=== PATIENT | male | born 2000 | race Caucasian/White ===

== ENCOUNTER 2022-12-31 17:53 | Inpatient (IN) ==
--- NOTE | 2022-12-31 18:01 | ED Triage Note ---
Date of Service December 31, 2022 History of Present Illness This patient was briefly evaluated while in triage. An abbreviated physical exam was performed. This patient is a 22-year-old Male with past medical history of prior pneumothorax who presents to the ED for evaluation of pneumothorax. Patient sta himanshu that he is having left-sided chest pain. He was seen at urgent care today and had a chest x-ray. They just called him and told him that he had a pneumothorax and should come to the ER. He was not treated with a chest tube in the past. Physical Exam VITALS: Vitals are noted on the nurse's note and reviewed by myself. GENERAL: This is a 22-year-old male, in no acute distress, nondiaphoretic, well- developed well-nourished. HEART: Regular rate and rhythm without murmurs gallops or rubs. LUNGS: Mildly decreased breath sounds on the left. No retractions or accessory muscle use. NEURO: Patient was alert and oriented to person place and time. Initial orders for labs and / or imaging were placed and patient was placed in the waiting area until a bed is available. Please see further documentation for the full ED course.
--- NOTE | 2022-12-31 18:52 | XRay Report ---
XR chest 1V portable CLINICAL HISTORY: Pneumothorax per urgent care, left chest pain TECHNIQUE: Single frontal radiograph of the chest was obtained. Comparison: Comparison is made to chest radiograph 08/19/2022 FINDINGS: No lines and tubes are seen. Rightward cardiomediastinal shift is noted, the contour is otherwise unr emarkable. The lungs are clear. There is a moderate left pneumothorax. IMPRESSION: Moderate left pneumothorax with associated rightward midline shift. This is significantly increased f rom prior exam. ACT 112: Negative or not required by law. Electronically signed by: Miguel Bassett M.D. 12/31/2022 6:51 PM
[2022-12-31] MEDS ORDERED: LIDO/EPINEPHRINE/SOD BICARB 50 ML VIAL INFIL ONE (19:12)
[2022-12-31] MEDS ORDERED: MoRPHine SULFATE 4 MG/ML 1 ML CARP\\VIAL IV STA (19:24)
[2022-12-31] MEDS ORDERED: MoRPHine SULFATE 2 MG/ML CARP ONE (19:25)
[2022-12-31] MEDS ORDERED: ONDANSETRON INJ 2 MG/ML 2 ML VIAL IV STA (19:25)
[2022-12-31] MEDS ORDERED: ONDANSETRON INJ 2 MG/ML 2 ML VIAL ONE (19:26)
[2022-12-31] MEDS ORDERED: LORazepam 2 MG/1 ML VIAL IV STA (19:27)
--- NOTE | 2022-12-31 20:01 | XRay Report ---
XR chest 1V portable CLINICAL HISTORY: throavent placement TECHNIQUE: Single frontal radiograph of the chest was obtained. Comparison: Comparison is made to chest radiograph 12/31/2022 FINDINGS: Interval placement of a left pleural catheter. The cardiomediastinal silhouette is normal. The lungs are clear. The left pneumothorax has somewhat decreased in size. IMPRESSION: [id number] left pneumothorax, somewhat decreased in size from prior exam. ACT 112: Negative or not required by law. Electronically signed by: Miguel Bassett M.D. 12/31/2022 8:00 PM
--- NOTE | 2022-12-31 20:07 | Emergency Department Note ---
History of Present Illness General Chief complaint: Abnormal Labs/Diagnostic Testing Stated complaint: SOMETHING WRONG WITH THORAX Time Seen by Provider: 12/31/22 18:04 History of Present Illness Provider complaint: Left-sided chest pain pneumothorax Onset (ago): day(s) 2 Location: chest and left Associated symptoms: + chest pain 22-year-old male presents emergency department for left-sided chest pain. Patient reports his left-sided chest pain began 2 days ago. He states it hurts more when he takes a deep breath. Patient states it feels similar to when he had pneumothoraces in the past. Patient states he has had pneumothorax twice in his life before all on the left side he states they usually resolve on their own and he has never received a chest tube. Patient denies any trauma. He denies any falls. Patient states he had an outpatient x-ray done today which showed a pneumothorax and was referred to the emergency department. Home Medications Medication Instructions Recorded Confirmed Type amoxicillin 875 mg tablet 875 mg PO BID 12/31/22 12/31/22 History Allergies Allergy/AdvReac Type Severity Reaction Status Date / Time No Known Allergies Allergy Verified 08/20/22 07:33 Past Med/Surg History Medical History No pertinent family history Pneumothorax Surgical History No pertinent past surgical history Social History Smoking Status: Never smoker Feels Safe at Home: Yes Physical Exam Vital Signs Vital Signs - 24 hr 12/31/22 18:01 12/31/22 18:10 12/31/22 18:11 Temperature 36.5 C Temperature Source Temporal Artery Scan Pulse Rate 105 H 93 H Pulse Rate [Left Apical] Pulse Rhythm [Left Apical] Pulse Strength [Left Apical] Respiratory Rate 18 Respiratory Effort / Characteristics Non-Labored Respiratory Depth Normal Blood Pressure 136/92 Blood Pressure [Right Arm] Blood Pressure Mean 106 Blood Pressure Mean [Right Arm] Pulse Oximetry 97 100 Oxygen Delivery Method Room Air Non-rebreather Oxygen Flow Rate 15 Sepsis Recent Fever Within 48 Hours No Sepsis New/Unexplained Change in Mental Status No Sepsis Action Taken by Nursing No Action Required 12/31/22 19:30 12/31/22 19:50 12/31/22 20:53 Temperature Temperature Source Pulse Rate Pulse Rate [Left Apical] 89 77 72 Pulse Rhythm [Left Apical] Regular Pulse Strength [Left Apical] Normal Respiratory Rate 20 20 20 Respiratory Effort / Characteristics Non-Labored Spontaneous Non-Labored Spontaneous Non-Labored Spontaneous Respiratory Depth Normal Normal Normal Blood Pressure Blood Pressure [Right Arm] 130/94 129/91 116/75 Blood Pressure Mean Blood Pressure Mean [Right Arm] 106 103 88 Pulse Oximetry 100 100 100 Oxygen Delivery Method Non-rebreather Non-rebreather Non-rebreather Oxygen Flow Rate 10 10 15 Sepsis Recent Fever Within 48 Hours Sepsis New/Unexplained Change in Mental Status Sepsis Action Taken by Nursing 12/31/22 22:07 12/31/22 22:22 Temperature Temperature Source Pulse Rate 64 Pulse Rate [Left Apical] 62 Pulse Rhythm [Left Apical] Regular Pulse Strength [Left Apical] Normal Respiratory Rate 20 Respiratory Effort / Characteristics Non-Labored Spontaneous Respiratory Depth Normal Blood Pressure Blood Pressure [Right Arm] 121/75 Blood Pressure Mean Blood Pressure Mean [Right Arm] 90 Pulse Oximetry 100 Oxygen Delivery Method Non-rebreather Oxygen Flow Rate 15 Sepsis Recent Fever Within 48 Hours Sepsis New/Unexplained Change in Mental Status Sepsis Action Taken by Nursing Physical Exam GENERAL: He is oriented to person, place, and time. He appears well-developed and well-nourished. He does not appear distressed. HENT: Exam performed. - Head: Normocephalic and atraumatic. EYES: Conjunctivae and EOM are normal. Pupils are equal, round, and reactive to light. Right eye exhibits no discharge. Left eye exhibits no discharge. No scleral icterus. NECK: Normal range of motion. Neck supple. No JVD present. CV: Normal rate, regular rhythm, normal heart sounds and intact distal pulses. There is no peripheral edema. Palpable radial pulses bue. PULM/CHEST: Diminished breath sounds on the left. - Chest Wall: He exhibits no tenderness. No crepitus bilaterally. ABD: The abdomen is soft. MUSC/SKEL: Normal range of motion. There is no peripheral edema, tenderness or deformity. LYMPH: No cervical adenopathy. NEURO: Motor and sensation grossly intact. SKIN: Skin is warm and dry. He is not diaphoretic. PSYCH: He has a normal mood and affect. Behavior is normal. Judgment and thought content normal. Procedures Free Text Procedures Tube Thoracostomy Indication: L Pneumothorax Written consent was obtained after the risks and benefits were explained, including but not limited to bleeding, scarring, infection, pain. At this time, the risks of the procedure are less than the risks of NOT performing the procedure. A time out was taken and the correct patient and site identified. The patient was prepped and draped in the standard surgical fashion. 1% lidocaine without epinephrine was infused over the L fifth intercostal space into the subcutaneous tissue. An incision was made in the mid axillary line over the fifth intercostal rib. A thoravent was inserted in the pleural space. Area was manually aspirated with a 50 cc syringe. The patient tolerated the procedure well without complications. A postoperative x-ray was then performed which showed the thoracostomy tube in the correct position. Course Course 1803: The patient was evaluated in room C11. A complete history and physical exam was performed Cardiac monitoring: An order was placed for continuous cardiac monitoring. The monitor shows a rate of 60 with sinus rhythm interpreted by me 1844: Chest x-ray shows left-sided pneumothorax no mediastinal shift pneumothorax is approximately 2.9 cm in size. 1914: Formal radiology read states that there is some right word midline shift. Clinically there is no tension. Patient's blood pressure is stable no JVD trachea midline. 1954: Thoravent was placed. See procedure note. Patient tolerated procedure well. Pneumothorax has decreased in size by approximately half approximately 1.4 cm in size now. We will plan to admit to the hospitalist service. 2056: Spoke with the hospitalist team. Dr. Hawk as we speak with pulmonology. Spoke with pulmonology Dr. Bashir who recommended transfer because he states that this is the patient's third pneumothorax on the left side and he states he needs a VATS/pleurodesis procedure and we do not have thoracic surgery at this facility. I did inform Dr. Bashir that there is been significant delay in transfer due to tertiary care facilities locally not having any available beds and he states if that is the case to admit to medicine and to get a CT of the chest on the patient. 2115: There are no available beds at [facility] or [facility] for the patient at this time. Both facilities state they cannot accept the patient as a transfer at this time. Dr. Hawk agrees to admit the patient and asked me to speak with pulmonology Dr. Bashir to see if the patient should go to the ICU. Dr. Bashir states that the patient does not need to go to the ICU. Dr. Hawk will admit the patient. 2240: Vital signs stable. CT scan viewed by me does still show pneumothorax. Patient will air was aspirated with 50 cc syringe from the patient's Thora vent. Patient tolerated procedure well. Patient states he feels much better after having the Thora vent placed stating he no longer hurts to take in a deep breat h. He reports no pain or difficulty breathing at this time. 2300: Formal CT read shows a residual 10% pneumothorax, this is the read prior to the additional aspiration of air being conducted. Patient will be admitted to the medicine service. Administered Medications Discontinued Medications Lidocaine/Epinephrine (Lido/Epinephrine/Sod Bicarb 50 Ml Vial) Confirm Administered Dose 1 ml INFIL .STK-MED ONE Stop: 12/31/22 19:13 Last Admin: 12/31/22 19:51 Dose: 1 ml Documented By: TW Lorazepam (Lorazepam 2 Mg/1 Ml Vial) 1 mg IV NOW STA Stop: 12/31/22 19:28 Last Admin: 12/31/22 19:53 Dose: 0.25 mg Documented By: TW Morphine Sulfate (Morphine Sulfate 4 Mg/Ml 1 Ml Carp\Vial) 4 mg IV NOW STA Stop: 12/31/22 19:25 Last Admin: 12/31/22 19:54 Dose: Not Given Documented By: TW Morphine Sulfate (Morphine Sulfate 2 Mg/Ml Carp) Confirm Administered Dose 4 mg .ROUTE .STK-MED ONE Stop: 12/31/22 19:26 Last Admin: 12/31/22 19:45 Dose: 4 mg Documented By: TW Ondansetron HCl (Ondansetron Inj 2 Mg/Ml 2 Ml Vial) 4 mg IV NOW STA Stop: 12/31/22 19:26 Last Admin: 12/31/22 19:35 Dose: 4 mg Documented By: TW Ondansetron HCl (Ondansetron Inj 2 Mg/Ml 2 Ml Vial) Confirm Administered Dose 4 mg .ROUTE .STK-MED ONE Stop: 12/31/22 19:27 Last Admin: 12/31/22 19:54 Dose: Not Given Documented By: TW Medical Decision Making Laboratory Data Attestation: I reviewed the patient's lab results. 12/31/22 21:05 12/31/22 21:05 Lab Results 12/31/22 12/31/22 12/31/22 Range/Units 20:10 21:05 21:05 WBC 10.64 (4.8-10.8) K/ul RBC 4.20 L (4.70-6.10) M/uL Hgb 12.4 L (14.0-18.0) g/dl Hct 36.7 L (42.0-52.0) % MCV 87.4 (80.0-100.0) fL MCH 29.5 (25.0-34.0) pg MCHC 33.8 (32.0-36.0) g/dL RDW Std Deviation 38.7 (36.4-46.3) fL RDW Coeff of Ledy 12.1 (11.5-14.5) % Plt Count 277 (130-400) K/uL MPV 9.8 (9.4-12.4) fL Immature Gran % (Auto) 0.4 % Neut % (Auto) 82.4 % Lymph % (Auto) 9.5 % [place] % (Auto) 6.1 % Eos % (Auto) 1.4 % Baso % (Auto) 0.2 % Neut # (Auto) 8.77 H (1.40-6.50) K/uL Lymph # (Auto) 1.01 L (1.2-3.4) K/uL [place] # (Auto) 0.65 H (0.11-0.59) K/uL Eos # (Auto) 0.15 (0-0.50) K/uL Baso # (Auto) 0.02 (0-0.2) K/uL Immature Gran # (Auto) 0.04 (0.01-0.20) K/uL Sodium 139 (136-145) mmol/L Potassium 3.7 (3.5-5.1) mmol/L Chloride 103 (98-107) mmol/L Carbon Dioxide 30 (21-32) mmol/L Anion Gap 6 (3-11) BUN 11 (6-23) mg/dl Creatinine 0.89 (0.6-1.4) mg/dl Est Cr Clr Drug Dosing 115.0 ml/min Est GFR ( Amer) 141.7 ml/min Est GFR (Non-Af Amer) 122.2 ml/min BUN/Creatinine Ratio 12.4 (10-20) Glucose 107 H (70-99(Fasting)) mg/dl Calcium 9.2 (8.5-10.1) mg/dl Magnesium 2.1 (1.7-2.4) mg/dl SARS-CoV-2, RNA, NAAT NEGATIVE (NEGATIVE) Imaging Data Attestation: I personally reviewed and interpreted this imaging study as follows: My Impression: Chest x-ray #1: Left-sided pneumothorax approximately 2.9 cm in size Chest x-ray #2: Thora vent in place. Pneumothorax is now 1.[address] chest: Left-sided pneumothorax is still present. Radiologist's Impression: Chest X-Ray 12/31/22 17:59 XR chest 1V portable CLINICAL HISTORY: Pneumothorax per urgent care, left chest pain TECHNIQUE: Single frontal radiograph of the chest was obtained. Comparison: Comparison is made to chest radiograph 08/19/2022 FINDINGS: No lines and tubes are seen. Rightward cardiomediastinal shift is noted, the contour is otherwise unremarkable. The lungs are clear. There is a moderate left pneumothorax. IMPRESSION: Moderate left pneumothorax with associated rightward midline shift. This is significantly increased from prior exam. ACT 112: Negative or not required by law. Electronically signed by: Miguel Bassett M.D. 12/31/2022 6:51 PM Chest X-Ray 12/31/22 19:45 XR chest 1V portable CLINICAL HISTORY: throavent placement TECHNIQUE: Single frontal radiograph of the chest was obtained. Comparison: Comparison is made to chest radiograph 12/31/2022 FINDINGS: Interval placement of a left pleural catheter. The cardiomediastinal silhouette is normal. The lungs are clear. The left pneumothorax has somewhat decreased in size. IMPRESSION: [id number] left pneumothorax, somewhat decreased in size from prior exam. ACT 112: Negative or not required by law. Electronically signed by: Miguel Bassett M.D. 12/31/2022 8:00 PM [facility] Narrative 1804: The patient was evaluated in room C11. A complete history and physical exam was performed Cardiac monitoring: An order was placed for continuous cardiac monitoring. The monitor shows a rate of 60 with sinus rhythm interpreted by wi 1845: Chest x-ray shows left-sided pneumothorax no mediastinal shift pneumothorax is approximately 2.9 cm in size. 1914: Formal radiology read states that there is some right word midline shift. Clinically there is no tension. Patient's blood pressure is stable no JVD trachea midline. 1954: Thoravent was placed. See procedure note. Patient tolerated procedure well. Pneumothorax has decreased in size by approximately half approximately 1. 4 cm in size now. We will plan to admit to the hospitalist service. 2056: Spoke with the hospitalist team. Dr. Hawk as we speak with pulmonology. Spoke with pulmonology Dr. Bashir who recommended transfer because he states that this is the patient's third pneumothorax on the left side and he states he needs a VATS/pleurodesis procedure and we do not have thoracic surgery at this facility. I did inform Dr. Bashir that there is been significant delay in transfer due to tertiary care facilities locally not having any available beds and he states if that is the case to admit to medicine and to get a CT of the chest on the patient. 2115: There are no available beds at [facility] or [facility] for the patient at this time. Both facilities state they cannot accept the patient as a transfer at this time. Dr. Hawk agrees to admit the patient and asked me to speak with pulmonology Dr. Bashir to see if the patient should go to the ICU. Dr. Bashir states that the patient does not need to go to the ICU. Dr. Hawk will admit the patient. 2239: Vital signs stable. CT scan viewed by me does still show pneumothorax. Patient will air was aspirated with 50 cc syringe from the patient's Thora vent. Patient tolerated procedure well. Patient states he feels much better after having the Thora vent placed stating he no longer hurts to take in a deep michelle ath. He reports no pain or difficulty breathing at this time. 2299: Formal CT read shows a residual 10% pneumothorax, this is the read prior to the additional aspiration of air being conducted. Patient will be admitted to the medicine service. Impression & Plan Pneumothorax, left Discharge Plan Visit Data Chief Complaint: Abnormal Labs/Diagnostic Testing Stated Complaint: SOMETHING WRONG WITH THORAX ED Provider: Salomon Lawson Discharge Problem: Pneumothorax, left Patient Disposition: Admitted As Inpatient Forms Stand Alone Forms: My [facility] Prescriptions Prescriptions: No Action amoxicillin 875 mg tablet 875 mg PO BID Referrals Referrals: PCP,NO [Primary Care Provider] -
--- NOTE | 2022-12-31 21:00 | History & Physical Report ---
Date of Service December 31, 2022 Assessment & Plan (1) Pneumothorax, left: Plan: Spontaneous left pneumothorax, initially with rightward midline shift, decreased in size and without shift after placement of Thora-Vent. Third episode of spontaneous PTX, all occurring after severe COVID-19 infection in 2019 --> ?post-inflammatory changes, +/- ?connective tissue disease such as Marfan's syndrome (tall/slender body habitus and pectus excavatum deformity). - consulted Pulmonology (Dr. Bashir) - recommended transfer for thoracic surgery capabilities but no current availability at [facility] or [facility] to accept patient --> will admit patient to PCU with Pulmonology consulted - check CT chest w/o contrast - ordered TTE as well to assess aortic diameter - utilize supplemental O2 to maintain SpO2 >90% (2) Strep pharyngitis: Plan: Diagnosed several days ago as outpatient, currently on day 3 of Amoxicillin - continue. Plan FEN/GI: NPO, LR @80cc/hr x1L DVT Prophylaxis: hold chemoppx due to recent Thora-Vent placement and need for possible further procedure Code Status: full Disposition: PCU History of Present Illness Chief Complaint: pneumothorax Primary Care Provider: NO PCP Justin Sun is a 22yo male with PMHx significant for spontaneous pneumothorax x2 who presented to [facility] ED on 12/31 for left-sided pneumothorax. Seen by urgent care earlier in the day with left-sided chest pain, had CXR done showing the PTX and was told to go to ED. Patient reports that he was diagnosed with strep throat 3 days ago and started Amoxicillin for this. Woke up 2 days ago with left-sided chest pain that persisted until he woke up earlier today and felt the chest pain was radiating up to his left shoulder with some shortness of breath which prompted him to go to urgent care. Patient reports that he got COVID-19 "severely" in 2020 and has had all 3 episodes of spontaneous pneumothorax since then. Denies family history of pneumothorax. Denies family history of connective tissue diseases or Marfan syndrome. Patient vapes daily and occasionally smokes marijuana via water bong. He has 8-10 alcoholic drinks per week, usually on the weekends. Denies drug use. In the ED the patient was placed on 10L non-rebreather and had Thora-Vent placed by ED physician. Satting well on non-rebreather. Initially tachycardic to 105 on arrival but HR improved to 70s s/p non-rebreather/thoravent. Normotensive. Labs pending. COVID-19 negative. CXR today with moderate left pneumothorax and rightward midline shift. Repeat CXR after Thora-Vent placed showing [id number] pneumothorax somewhat decreased in size from prior exam. Patient was given Zofran 4mg IV, Morphine 4mg IV and Ativan 1mg IV. Allergies Allergy/AdvReac Type Severity Reaction Status Date / Time No Known Allergies Allergy Verified 08/20/22 07:33 Home Medications Medication Instructions Recorded Confirmed Type amoxicillin 875 mg tablet 875 mg PO BID 12/31/22 12/31/22 History Past Med/Surg History Medical History No pertinent family history Pneumothorax Surgical History No pertinent past surgical history Social History Smoking Status: Never smoker Hx Alcohol Use: Yes Hx Substance Use: Yes Preferred Language: Haitian Communication Ability: Effective Concrete Vibrator Operator Required: No Beliefs That Will Affect Care: Confucianism Confucianism Beliefs: Hoahaoism Current Living Situation: Other Current Living Situation Comment: Fraternity Feels Safe at Home: Yes Assistive Devices: None Review of Systems Review of Systems: All systems reviewed & are unremarkable except as noted in HPI & below Physical Exam Physical Exam: General: A&Ox3. NAD. Cooperative. HEENT: Atraumatic, normocephalic. Pulm: CTAB A&P. -wheezes, -rales, -rhonchi. Symmetrical chest rise. No increase work of breathing. No respiratory distress. Cardiac: RRR, -mrg. Radial pulses intact and symmetrical. Chest: +pectus excavatum. Left Thora-Vent in place. Overlying dressing c/d/i, no bleeding. Abdominal: soft, non-tender, non-distended, BS x 4 Skin: warm, dry, no rash Results & Data Results & Data ([facility]) Vital Signs (Past 12 Hours) Vital Signs Temp Pulse Pulse Resp BP BP Pulse Ox 12/31/22 20:53 72 20 116/75 100 12/31/22 19:50 77 20 129/91 100 12/31/22 19:30 89 20 130/94 100 12/31/22 18:11 93 H 12/31/22 18:10 100 12/31/22 18:01 36.5 C 105 H 18 136/92 97 O2 Del Method O2 Flow Rate 12/31/22 20:53 Non-rebreather 12/31/22 19:50 Non-rebreather 12/31/22 19:30 Non-rebreather 12/31/22 18:11 12/31/22 18:10 Non-rebreather 12/31/22 18:01 Room Air Supervising Physician Co-Signing Physician Notes Attending addendum: I have physically seen this patient, have supervised the medical residents activities, and agree with the H&P unless as otherwise noted. Assessment and Plan: Spontaneous left pneumothorax- Chest x-ray with spontaneous left pneumothorax with initially right word midline shift, it was decreased in size and without shift after placement of Thora vent by the ED Attempt to transfer patient to tertiary care center, as requested by pulmonology phone consult, was unsuccessful due to no beds being available Patient therefore be admitted to PCU at this facility CT chest without contrast Transthoracic echocardiogram Oxygen supplementation to keep pulse ox 92-94% Strep pharyngitis- Continue full course of amoxicillin Resident Activity Tracking Resident Involvement: Resident Care Provided Care Provided: Adult Hospital Medicine
[2022-12-31 21:38] LABS: Basophils # (auto) 0.02 K/uL (0-0.2); Basophils % (auto) 0.2 %; Eosinophils # (auto) 0.15 K/uL (0-0.50); Eosinophils % (auto) 1.4 %; Hematocrit (blood only) 36.7 % (42.0-52.0); Hemoglobin 12.4 g/dl (14.0-18.0); Immature Granulocytes # (auto) 0.04 K/uL (0.01-0.20); Immature Granulocytes % (auto) 0.4 %; Lymphocytes # (auto) 1.01 K/uL (1.2-3.4); Lymphocytes % (auto) 9.5 %; Mean Corpuscular Hemoglobin 29.5 pg (25.0-34.0); Mean Corpuscular Hgb Conc 33.8 g/dL (32.0-36.0); Mean Corpuscular Volume 87.4 fL (80.0-100.0); Mean Platelet Volume 9.8 fL (9.4-12.4); Monocytes # (auto) 0.65 K/uL (0.11-0.59); Monocytes % (auto) 6.1 %; Neutrophils # (auto) 8.77 K/uL (1.40-6.50); Neutrophils % (auto) 82.4 %; Platelet Count 277 K/uL (130-400); RDW Coefficient of Variation 12.1 % (11.5-14.5); RDW Standard Deviation 38.7 fL (36.4-46.3); White Blood Count 10.64 K/ul (4.8-10.8)
[2022-12-31 21:41] LABS: BUN Creatinine Ratio 12.4 (10-20); Calcium 9.2 mg/dl (8.5-10.1); Est GFR (African American) 141.7 ml/min; Est GFR (Non-African American) 122.2 ml/min; Magnesium 2.1 mg/dl (1.7-2.4); Potassium 3.7 mmol/L (3.5-5.1)
[2022-12-31] MEDS ORDERED: ONDANSETRON INJ 2 MG/ML 2 ML VIAL IV PRN (23:34)
[2022-12-31] MEDS ORDERED: ACETAMINOPHEN 1,000 MG/100 ML VIAL IV PRN (23:34)
[2022-12-31] MEDS ORDERED: LACTATED RINGER'S 1,000 ML IV SCH (23:34)
[2023-01-01] MEDS: AMOXICILLIN SUSP 400 MG/5 ML PO SCH ×3 (00:54→20:43)
[2023-01-01 07:42] LABS: Basophils # (auto) 0.02 K/uL (0-0.2); Basophils % (auto) 0.4 %; Eosinophils # (auto) 0.24 K/uL (0-0.50); Eosinophils % (auto) 4.7 %; Hematocrit (blood only) 35.9 % (42.0-52.0); Immature Granulocytes # (auto) 0.02 K/uL (0.01-0.20); Immature Granulocytes % (auto) 0.4 %; Lymphocytes # (auto) 1.45 K/uL (1.2-3.4); Lymphocytes % (auto) 28.7 %; Mean Corpuscular Hemoglobin 29.5 pg (25.0-34.0); Mean Corpuscular Hgb Conc 33.4 g/dL (32.0-36.0); Mean Corpuscular Volume 88.2 fL (80.0-100.0); Mean Platelet Volume 9.8 fL (9.4-12.4); Monocytes # (auto) 0.46 K/uL (0.11-0.59); Monocytes % (auto) 9.1 %; Neutrophils # (auto) 2.87 K/uL (1.40-6.50); Neutrophils % (auto) 56.7 %; Platelet Count 254 K/uL (130-400); RDW Coefficient of Variation 12.3 % (11.5-14.5); RDW Standard Deviation 39.6 fL (36.4-46.3); Red Blood Count 4.07 M/uL (4.70-6.10); White Blood Count 5.06 K/ul (4.8-10.8)
--- NOTE | 2023-01-01 07:43 | CT Scan Report ---
CT SCAN OF THE CHEST WITHOUT IV CONTRAST CLINICAL HISTORY: Dyspnea. Spontaneous pneumothorax. COMPARISON STUDY: Chest x-ray dated 12/31/2022. TECHNIQUE: CT scan of the thorax was performed from the thoracic inlet to the upper abdomen. Images are reviewed in the axial, sagittal, and coronal planes. IV contrast was not administered for this ex amination as per the referring clinician. A dose lowering technique was utilized adhering to the [facility]. CT DOSE: 241.68 mGy.cm FINDINGS: Thyroid: Normal in size and heterogeneous in attenuation. Thoracic aorta: The thoracic aorta is normal in caliber and demonstrates standard 3-vessel arch anato my. Heart: The heart is normal in size and without pericardial effusion. Lungs and pleural spaces: There is trace left pleural effusion. The trachea is midline. Minimal secre tions are noted in the trachea. There is a moderate left pneumothorax, exiting from the apex to the b ase anteriorly. A chest tube enters the left pleural space laterally between the 5th and 6th ribs. Th ere are foci of patchy nodular airspace consolidation in the right upper lobe, the right lower lobe, and the left lower lobe. There are numerous tiny blebs at the right apex which measure up to 6 mm. No definite blebs are seen at the left apex. Mild stranding is seen in the pleural space at the left ap ex. Mediastinum: There is no mediastinal lymphadenopathy. Flores: There are calcified left hilar nodes. Note that the flores are not well assessed without IV contr ast. Axillae: There is no axillary lymphadenopathy. Upper abdomen: Partially visualized upper abdominal viscera is within normal limits. Skeletal structures: No lytic or blastic bony lesions are seen. IMPRESSION: 1. There is a moderate left-sided pneumothorax noting a chest tube in place. 2. Multifocal patchy/nodular consolidation is seen throughout both lungs. This suggests multifocal pn eumonia and clinical correlation will be required. Radiographic follow-up to resolution is recommende d. 3. Trace left pleural effusion. 4. There are numerous tiny blebs at the right apex. 5. No definite bleb is seen at the left apex. This is suboptimally assessed due to pneumothorax. 6. Additional findings as above. ACT 112: Negative or not required by law. Electronically signed by: Bird Ramires M.D. 01/01/2023 7:41 AM
[2023-01-01 07:56] LABS: BUN Creatinine Ratio 13.8 (10-20); Calcium 9.3 mg/dl (8.5-10.1); Creatinine Clr Calc Pharmacy 124.8 ml/min; Est GFR (Non-African American) 127.7 ml/min; Magnesium 2.1 mg/dl (1.7-2.4); Potassium 4.2 mmol/L (3.5-5.1)
[2023-01-01] MEDS ORDERED: IBUPROFEN 600 MG TAB PO PRN (08:07)
[2023-01-01] MEDS ORDERED: ACETAMINOPHEN 325 MG TAB PO PRN (08:07)
--- NOTE | 2023-01-01 08:10 | Pulmonary Consultation ---
Date of Consultation January 01, 2023 Assessment & Plan (1) Pneumothorax, left: Plan Impression: 22-year-old male with third episode of spontaneous pneumothorax status post Thora vent placement. His CT scan does not demonstrate significant structural abnormalities of the lung. The pneumothorax is not completely resolved although the tube appears to be in appropriate position. Recommendations: 1. Spontaneous pneumothorax, recurrent: This is the patient's third episode. Video-assisted thoracoscopic evaluation with pleurodesis is recommended to prevent recurrent events. The patient is pending transfer to a tertiary facility for thoracic surgery consultation. [facility] contacted to see if they have availability to try and facilitate the patient's work-up. I attempted to aspirate Thora vent today but did not get much air out. We will plan on repeating his chest x-ray on a daily basis while he is here in the hospital. He was advised to avoid vaping or using any inhalational forms of THC in the future. From my perspective the patient does not need the progressive care unit or telemetry as he is stable at this point. Defer to primary service. The patient does not have signs or symptoms to suggest Rizwana Carrie Dubay syndrome. There is no evidence of aortic dilatation on the CT scan so I do not think an echocardiogram is required at this time 2. Discontinue IV Tylenol. The patient can use oral pain medications. Would recommend nonsteroidals or Tylenol as needed. 3. Pneumonia: The patient has parenchymal patchy opacities on his CT scan likely consistent with an infectious or inflammatory etiology. His white count is normal. He is currently on a course of amoxicillin. Follow-up imaging as clinically indicated. 4. Discontinue IV fluids. Advance diet as tolerated. 5. The patient can ambulate and should be encouraged to ambulate. Above recommendations and plan were discussed with the patient. Questions were answered to the best my ability. We will continue to follow with you History of Present Illness Attending Physician: Enrique Perez MD History of Present Illness Asked by hospitalist to assist in evaluation management this patient with recurrent pneumothorax. History is obtained from discussion with the patient and review the electronic medical record. The patient is a 22-year-old male who occasionally vapes marijuana who presented to the emergency room with acute onset chest pain and was found to have a pneumothorax. A Thora vent was placed by the ER staff. This is a recurrent event. The patient's initial pneumothorax occurred back in 2019. This was diagnosed at an urgent care. We do not have that imaging available to review but he was managed conservatively. He then states he suffered another one about a year ago. This was diagnosed in the emergency room here. It was small. He was managed with supplemental oxygen and dismissed home. He never had any pulmonary follow-up after that. Patient states that he was diagnosed with COVID about 2 years ago and has had progressive issues ever since that diagnosis. He states that it has affected his immune system. He has had pericarditis on 2 separate occasions. He was recently diagnosed with strep throat and placed on amoxicillin. He states that all of his prior pneumothoraces have been spontaneous in nature. None of them have been precipitated by physical exertion or cough. There is no family history of structural lung disease that he is aware of. No skin lesions to suggest fibroadenomas. No history of kidney lesions. No history of asthma or breathing difficulties. The patient is complaining of some mild discomfort at the Thora vent insertion site but otherwise is doing well clinically. Referrals have apparently been made to [facility] as well as [facility] for thoracic surgery evaluation and pleurodesis however no beds are available currently. Allergies Allergy/AdvReac Type Severity Reaction Status Date / Time No Known Allergies Allergy Verified 08/20/22 07:33 Home Medications Medication Instructions Recorded Confirmed Type amoxicillin 875 mg tablet 875 mg PO BID 12/31/22 12/31/22 History Patient History Medical History No pertinent family history Pneumothorax Surgical History No pertinent past surgical history Social History Smoking Status: Never smoker Do You Dip or Chew Tobacco: No; Hx Alcohol Use: Yes Hx Substance Use: Yes Preferred Language: Pakistani Communication Ability: Effective Systems Testing Laboratory Technician Required: No Beliefs That Will Affect Care: [employer] Beliefs: Worship Current Living Situation: Other Current Living Situation Comment: Fr[employer] Feels Safe at Home: Yes Safety Concerns: Feels Safe At This Time Review of Systems Review of Systems: All systems reviewed & are unremarkable except as noted in Subjective Physical Exam Constitutional: WD/WN, vitals as above Neck: trachea midline, no thyromegaly Respiratory: normal respiratory effort, lungs clear to auscultation Cardiovascular: RRR, no murmur, no edema Gastrointestinal (Abdomen): normal bowel sounds, soft, nontender, no hepatosplenomegaly Musculoskeletal: Extremities: extremities normal to inspection Skin: no rashes, warm and dry Neurologic: Nonfocal exam Lymphatic: no cervical lymphadenopathy Results & Data Results & Data ([facility]) Vital Signs (Past 12 Hours) Vital Signs Temp Pulse Pulse Resp BP Pulse Ox O2 Del Method 01/01/23 07:04 36.6 C 50 L 14 103/71 100 Nasal Cannula 01/01/23 04:28 36.3 C L 52 L 16 112/66 99 Nasal Cannula 01/01/23 00:33 80 12/31/22 23:34 12/31/22 23:34 Nasal Cannula 12/31/22 23:34 36.7 C 72 20 123/83 95 Nasal Cannula 12/31/22 23:03 65 20 130/74 99 Nasal Cannula 12/31/22 22:22 64 12/31/22 22:07 62 20 121/75 100 Non-rebreather 12/31/22 20:53 72 20 116/75 100 Non-rebreather O2 Del Method O2 Flow Rate O2 Flow Rate 01/01/23 07:04 2 01/01/23 04:28 2.0 01/01/23 00:33 12/31/22 23:34 Nasal Cannula 2 12/31/22 23:34 2 12/31/22 23:34 2 12/31/22 23:03 2 12/31/22 22:22 12/31/22 22:07 15 12/31/22 20:53 15 Critical Care Results & Data Vital Signs (Past 12 Hours) Vital Signs Temp Pulse Pulse Resp BP Pulse Ox O2 Del Method 01/01/23 07:04 36.6 C 50 L 14 103/71 100 Nasal Cannula 01/01/23 04:28 36.3 C L 52 L 16 112/66 99 Nasal Cannula 01/01/23 00:33 80 12/31/22 23:34 12/31/22 23:34 Nasal Cannula 12/31/22 23:34 36.7 C 72 20 123/83 95 Nasal Cannula 12/31/22 23:03 65 20 130/74 99 Nasal Cannula 12/31/22 22:22 64 12/31/22 22:07 62 20 121/75 100 Non-rebreather 12/31/22 20:53 72 20 116/75 100 Non-rebreather O2 Del Method O2 Flow Rate O2 Flow Rate 01/01/23 07:04 2 01/01/23 04:28 2.0 01/01/23 00:33 12/31/22 23:34 Nasal Cannula 2 12/31/22 23:34 2 12/31/22 23:34 2 12/31/22 23:03 2 12/31/22 22:22 12/31/22 22:07 15 12/31/22 20:53 15 Lab & Micro Results (Past 24 Hours) RBC 4.07 M/uL (4.70-6.10) L 01/01/23 WBC 5.06 K/ul (4.8-10.8) 01/01/23 Hgb 12.0 g/dl (14.0-18.0) L 01/01/23 Hct 35.9 % (42.0-52.0) L 01/01/23 MCV 88.2 fL (80.0-100.0) 01/01/23 MCH 29.5 pg (25.0-34.0) 01/01/23 MCHC 33.4 g/dL (32.0-36.0) 01/01/23 RDW Standard Deviation 39.6 fL (36.4-46.3) 01/01/23 RDW Coefficient of Variation 12.3 % (11.5-14.5) 01/01/23 Plt Count 254 K/uL (130-400) 01/01/23 MPV 9.8 fL (9.4-12.4) 01/01/23 Neutrophils (%) (Auto) 56.7 % 01/01/23 Lymphocytes (%) (Auto) 28.7 % 01/01/23 Monocytes # (Auto) 0.46 K/uL (0.11-0.59) 01/01/23 Eosinophils # (Auto) 0.24 K/uL (0-0.50) 01/01/23 Immature Granulocyte % (Auto) 0.4 % 01/01/23 Neutrophils # (Auto) 2.87 K/uL (1.40-6.50) 01/01/23 Lymphocytes # (Auto) 1.45 K/uL (1.2-3.4) 01/01/23 Monocytes # (Auto) 0.46 K/uL (0.11-0.59) 01/01/23 Eosinophils # (Auto) 0.24 K/uL (0-0.50) 01/01/23 Basophils # (Auto) 0.02 K/uL (0-0.2) 01/01/23 Immature Granulocyte # (Auto) 0.02 K/uL (0.01-0.20) 3 Na 140 mmol/L (136-145) 01/01/23 K 4.2 mmol/L (3.5-5.1) 01/01/23 Cl 105 mmol/L (98-107) 01/01/23 CO2 31 mmol/L (21-32) 01/01/23 Anion Gap 4 (3-11) 01/01/23 BUN 11 mg/dl (6-23) 01/01/23 Creatinine 0.80 mg/dl (0.6-1.4) 01/01/23 Estimated GFR ( Amer) 148.0 ml/min 01/01/23 Estimated GFR (Non-Af Amer) 127.7 ml/min 01/01/23 BUN/Creatinine Ratio 13.8 (10-20) 01/01/23 Glu 100 mg/dl (70-99(Fasting)) H 01/01/23 Ca 9.3 mg/dl (8.5-10.1) 01/01/23 Mg 2.1 mg/dl (1.7-2.4) 01/01/23 07:12 Calcium Level 9.3 mg/dl (8.5-10.1) 01/01/23 07:12 Diagnostic Findings (Past 24 Hours) Chest X-Ray 12/31/22 17:59 XR chest 1V portable CLINICAL HISTORY: Pneumothorax per urgent care, left chest pain TECHNIQUE: Single frontal radiograph of the chest was obtained. Comparison: Comparison is made to chest radiograph 08/19/2022 FINDINGS: No lines and tubes are seen. Rightward cardiomediastinal shift is noted, the contour is otherwise unremarkable. The lungs are clear. There is a moderate left pneumothorax. IMPRESSION: Moderate left pneumothorax with associated rightward midline shift. This is significantly increased from prior exam. ACT 112: Negative or not required by law. Electronically signed by: Miguel Bassett M.D. 12/31/2022 6:51 PM Chest X-Ray 12/31/22 19:45 XR chest 1V portable CLINICAL HISTORY: throavent placement TECHNIQUE: Single frontal radiograph of the chest was obtained. Comparison: Comparison is made to chest radiograph 12/31/2022 FINDINGS: Interval placement of a left pleural catheter. The cardiomediastinal silhouette is normal. The lungs are clear. The left pneumothorax has somewhat decreased in size. IMPRESSION: [id number] left pneumothorax, somewhat decreased in size from prior exam. ACT 112: Negative or not required by law. Electronically signed by: Miguel Bassett M.D. 12/31/2022 8:[address] 12/31/22 21:16 CT SCAN OF THE CHEST WITHOUT IV CONTRAST CLINICAL HISTORY: Dyspnea. Spontaneous pneumothorax. COMPARISON STUDY: Chest x-ray dated 12/31/2022. TECHNIQUE: CT scan of the thorax was performed from the thoracic inlet to the upper abdomen. Images are reviewed in the axial, sagittal, and coronal planes. IV contrast was not administered for this examination as per the referring clinician. A dose lowering technique was utilized adhering to the principles of ALARA. CT DOSE: 241.68 mGy.cm FINDINGS: Thyroid: Normal in size and heterogeneous in attenuation. Thoracic aorta: The thoracic aorta is normal in caliber and demonstrates standard 3-vessel arch anatomy. Heart: The heart is normal in size and without pericardial effusion. Lungs and pleural spaces: There is trace left pleural effusion. The trachea is midline. Minimal secretions are noted in the trachea. There is a moderate left pneumothorax, exiting from the apex to the base anteriorly. A chest tube enters the left pleural space laterally between the 5th and 6th ribs. There are foci of patchy nodular airspace consolidation in the right upper lobe, the right lower lobe, and the left lower lobe. There are numerous tiny blebs at the right apex which measure up to 6 mm. No definite blebs are seen at the left apex. Mild stranding is seen in the pleural space at the left apex. Mediastinum: There is no mediastinal lymphadenopathy. Flores: There are calcified left hilar nodes. Note that the flores are not well assessed without IV contrast. Axillae: There is no axillary lymphadenopathy. Upper abdomen: Partially visualized upper abdominal viscera is within normal limits. Skeletal structures: No lytic or blastic bony lesions are seen. IMPRESSION: 1. There is a moderate left-sided pneumothorax noting a chest tube in place. 2. Multifocal patchy/nodular consolidation is seen throughout both lungs. This suggests multifocal pneumonia and clinical correlation will be required. Radiographic follow-up to resolution is recommended. 3. Trace left pleural effusion. 4. There are numerous tiny blebs at the right apex. 5. No definite bleb is seen at the left apex. This is suboptimally assessed due to pneumothorax. 6. Additional findings as above. ACT 112: Negative or not required by law. Electronically signed by: Bird Ramires M.D. 01/01/2023 7:41 AM I & O Totals 24 Hours 12/31/22 01/01/23 01/02/23 06:59 06:59 06:59 Output Total 200 / 200 Balance -200 / -200 Cumulative 12/31/22 17:53 thru 01/01/23 07:06 Output Total 200 Balance -200 RT Ventilator Mngmt (Last Documented) Ventilator Ordered Settings Respiratory Rate 14 01/01/23 07:04 Ventilator - PT Measurements Respiratory Rate 14 PG Care Time/CCT Total # of Minutes Spent Total Time Spent with Patient: Total time spent is greater than 50% in coordination of care (as documented) at patient's floor/unit and/or counseling patient: Coding Level of Care Code INP/OBS CONSULT LVL 3, 45 MIN Diagnoses Pneumothorax, left J93.9
--- NOTE | 2023-01-01 09:14 | XRay Report ---
XR chest 1V portable CLINICAL HISTORY: Pneumothorax. COMPARISON STUDY: Chest radiograph and chest CT December 31, 2022. FINDINGS: A moderate left pneumothorax has mildly decreased in size since prior exam. The left pleura l pigtail catheter has been retracted and the tip is now extrathoracic in location. There is no right pneumothorax. A 3 cm right upper lobe airspace opacity is again noted. Cardiac size is normal. There is no evidence for pulmonary edema. IMPRESSION: 1. Mild decrease in size of a moderate left pneumothorax. Left pleural pigtail catheter is retracted and tip is extrathoracic in location. This finding will be called/faxed to the ordering provider at t haresh of dictation. 2. No change in a right upper lobe airspace opacity which is likely infectious. ACT 112: Negative or not required by law. Electronically signed by: Abdirizak Quezada M.D. 01/01/2023 9:12 AM
[2023-01-01] MEDS ORDERED: MoRPHine SULFATE 2 MG/ML CARP IV STA (11:19)
[2023-01-01] MEDS ORDERED: LORazepam 2 MG/1 ML VIAL IV STA (11:19)
--- NOTE | 2023-01-01 12:36 | Procedure Note ---
Procedure Note Date of Service January 01, 2023 Note Procedure: 8 [place]orran pneumothorax catheter Indication malpositioned Thora vent with recurrent pneumothorax Consent risks and benefits were explained to the patient. He agreed to proceed. Anesthesia: 10 mL lidocaine locally. The patient received 2 mg of morphine IV and 1 mg Ativan preprocedurally. Estimated blood loss: Less than 2 mL The patient was placed in a seated position semirecumbent. The dressing to the Thora vent was taken down and the Thora vent was removed with application of a occlusive dressing. The infraclavicular space was then cleaned with chlorhexidine. Sterile field was established. The second intercostal space below the clavicle was palpated. The skin was anesthetized using 10 cc of 1% lidocaine. I was able to aspirate air with the finder needle. Small skin lex was made. The 8 Andorran catheter over the needle catheter apparatus was then advanced into the pleural space. I again aspirated air. The catheter was threaded off the needle and the needle removed. Stopcock was attached and the tubing was attached to 20 cm suction with significant bubbling. This persisted for about 30 or 40 seconds then stopped. A skater securing system was used to fix the catheter to the chest wall. Post procedure chest x-ray is pending. The patient tolerated the procedure well without obvious complication. Coding CPT Codes Pulmonary/Thoracic - Pulmonary and Thoracic: 16536 Tube thoracostomy ([id number]) [facility] Procedure Codes (Charges) Pulmonary/Thoracic Procedure 1: Pulmonary and Thoracic: 03112 Tube thoracostomy
--- NOTE | 2023-01-01 13:05 | XRay Report ---
XR chest 1V portable CLINICAL HISTORY: chest tube COMPARISON STUDY: Chest radiograph performed earlier today. FINDINGS: Left pleural pigtail catheter is in place. The left pneumothorax has significantly decrease d in size. Trace residual pneumothorax is noted with superior pleural separation of 4 mm. There is no right pneumothorax. A focus of airspace opacity within the right upper lobe is again noted. Cardiac size is normal. Mediastinal contours are normal. IMPRESSION: Left pleural catheter in place. Significant decrease in size of the left pneumothorax, n ow trace in size. ACT 112: Negative or not required by law. Electronically signed by: Abdirizak Quezada M.D. 01/01/2023 1:04 PM
--- NOTE | 2023-01-01 16:09 | XCELERA ---
[id number]
--- NOTE | 2023-01-01 20:18 | Discharge Summary ---
Date of Service January 01, 2023 Admission HPI Per Admitting Provider Justin Sun is a 22yo male with PMHx significant for spontaneous pneumothorax x2 who presented to [facility] ED on 12/31 for left-sided pneumothorax. Seen by urgent care earlier in the day with left-sided chest pain, had CXR done showing the PTX and was told to go to ED. Patient reports that he was diagnosed with strep throat 3 days ago and started Amoxicillin for this. Woke up 2 days ago with left-sided chest pain that persisted until he woke up earlier today and felt the chest pain was radiating up to his left shoulder with some shortness of breath which prompted him to go to urgent care. Patient reports that he got COVID-19 "severely" in 2019 and has had all 3 episodes of spontaneous pneumothorax since then. Denies family history of pneumothorax. Denies family history of connective tissue diseases or Marfan syndrome. Patient vapes daily and occasionally smokes marijuana via water bong. He has 8-10 alcoholic drinks per week, usually on the weekends. Denies drug use. In the ED the patient was placed on 10L non-rebreather and had Thora-Vent placed by ED physician. Satting well on non-rebreather. Initially tachycardic to 105 on arrival but HR improved to 70s s/p non-rebreather/thoravent. Normotensive. Labs pending. COVID-19 negative. CXR today with moderate left pneumothorax and rightward midline shift. Repeat CXR after Thora-Vent placed showing [id number] pneumothorax somewhat decreased in size from prior exam. Patient was given Zofran 4mg IV, Morphine 4mg IV and Ativan 1mg IV. Principal Diagnosis Spontaneous pneumothorax Discharge Exam In general he is awake and alert pleasant no distress. HEENT normocephalic atraumatic mucous membranes moist. Breathing unlabored no accessory muscle use good effort. Skin shows no rashes no pallor icterus. Chest tube in place. Discharge Data Allergies Allergy/AdvReac Type Severity Reaction Status Date / Time No Known Allergies Allergy Verified 08/20/22 07:33 Consultations 12/31/22 23:34 Consult Pulmonology Routine 01/01/23 13:17 Burn CD for patient Stat Ordered Studies 12/31/22 21:16 CT chest diagnostic wo con Urgent Hospital Course (1) Pneumothorax, left: Apparently third recurrence of spontaneous pneumothorax. No thoracic surgery available at this facility. Agree with our pulmonary assessment that he would benefit from thoracic surgery. Discussed with thoracic surgery at [facility] who is more than willing to accept him in transfer and does believe that he would benefit from thoracic surgery evaluation/intervention. Patient informed of this, and is happy to go to what ever facility could take him most promptly. Stable for transfer. Otherwise as above Total Time Total Time Spent Total Time Spent (In Minutes): Greater than 30 Discharge Plan Discharge Items Patient Disposition: Transfer Acute Care Hospital Reason For Visit: SOMETHING WRONG WITH THORAX Discharge Diagnosis: spontaneous pneumothorax Activity: Per Instructions section Activity Comment: per tertiary Non-emergency contact: Primary Care Provider and Surgeon Call non-emergency contact if: you have any medication questions and your symptoms worsen Follow-up/Referrals: PCP,NO [Primary Care Provider] - Diet: Regular Addtl Attending Provider Instructions: per dr andujar/merlyn team Pending Studies at Discharge: No Stand-Alone Forms: My [facility] [employer] Skilled Items Patient informed of condition?: Yes DNR: No Discharge Level of Care: Other Communicable Disease: No Discharge Prognosis: Other Lines: Peripheral IV Urinary Catheter: No Medications and DC Order Prescriptions: Continued amoxicillin 875 mg tablet 875 mg PO BID Discharge Orders: Discharge Order (Routine); Ordered 01/01/23 Ordered By: Myke Cazares Admission Data Admit Date/Time: 12/31/22 21:22 Attending Provider: Enrique Perez Admit Provider: Enrique Perez Primary Care Provider: PCP,NO Other Providers: Glenn Bashir Coding Level of Care Code HOSP INP/OBS DISCH >30 MIN Diagnoses Pneumothorax, left J93.9
--- NOTE | 2023-01-02 05:50 | Billing Data ---
Date of Service January 02, 2023 Coding Level of Care Code 80328 INT INP/OBS CARE
== END 2023-01-01 23:00 | disposition short-term general hospital (02) | DRG 200 ==
LOC: ED 17:53 → 2E 21:22